=== PATIENT | female | born 1940 | race African-American/Black ===

== ENCOUNTER 2020-09-07 13:05 | Inpatient (IN) | payer BC ==
[~2020-09-07] VITALS: Ht 157.5 cm; Wt 64.0 kg
[~2020-09-07 13:05] MED LIST: DILT120C46 PO; GABA-531 PO; NORT50CA MT; PROP60CA2 PO; TIZA2CAP7 PO; VALS80TA30 MT; XAR15 MT
[2020-09-07] MEDS ORDERED: POLYETHYLENE GLYCOL 3350 (17GM) 1 DOSE PACK PO NR (15:00)
[2020-09-07] MEDS ORDERED: SODIUM POLYSTYRENE SULFONATE 15 G/60 ML BOT PO NR (15:00)
[2020-09-07 15:17] LABS: BASOPHILS % 0.4 % (0.0-2.0); EOSINOPHILS % 1.2 % (0.0-5.0); HEMATOCRIT. 32.8 % (36.0-48.0); LYMPHOCYTES % 27.7 % (20.0-50.0); MEAN CORPUSCULAR HEMOGLOBIN 29.5 pg (28.0-32.0); MEAN CORPUSCULAR VOLUME 87.5 fL (81.0-99.0); MONOCYTES % 8.2 % (2.0-8.0); NEUTROPHILS % 62.5 % (40.0-76.0); PLATELET 308 x1000/uL (130-400); RED BLOOD CELL COUNT 3.74 mill/uL (4.2-5.4); RED CELL DISTRIBUTION WIDTH 15.2 % (11.6-14.6)
[2020-09-07 15:21] LABS: CHLORIDE 102 mEq/L (98-107)
[2020-09-07 15:26] LABS: PROTHROMBIN TIME 10.9 sec (9.6-11.0)
[2020-09-07] MEDS ORDERED: SODIUM CHLORIDE 0.45% 500 ML IV ONE (15:30)
[2020-09-07 15:43] LABS: CREATINE KINASE 3418 IU/L (26-192)
[2020-09-07] MEDS ORDERED: SODIUM CHLORIDE 0.9% 500 ML IV ONE (15:45)
[2020-09-07] MEDS ORDERED: FUROSEMIDE 20MG TABLET PO SCH (21:00)
[2020-09-07] MEDS ORDERED: SODIUM CHLORIDE 0.9% 1,000 ML IV ONE (21:15)
[2020-09-07 22:05] LABS: CLARITY URINE CLEAR (CLEAR); COLOR URINE YELLOW (YELLOW); KETONES URINE NEGATIVE (NEGATIVE); LEUKOCYTE ESTERASE URINE TRACE (NEGATIVE); NITRITE URINE POSITIVE (NEGATIVE); OCCULT BLOOD URINE NEGATIVE (NEGATIVE); PH URINE 5.5 (4.5-8.0); PROTEIN URINE NEGATIVE (NEGATIVE); SPECIFIC GRAVITY URINE 1.016 (1.005-1.030); UROBILINOGEN URINE 0.2 E.U./dL (0.2-1.0)
[2020-09-07 23:34] VITALS: BP 133/49
[2020-09-08 07:15] LABS: BASOPHILS % 0.7 % (0.0-2.0); EOSINOPHILS % 2.3 % (0.0-5.0); HEMOGLOBIN. 12.6 g/dL (12.0-16.0); LYMPHOCYTES % 40.6 % (20.0-50.0); MEAN CORPUSCULAR HEMOGLOBIN 29.4 pg (28.0-32.0); MEAN CORPUSCULAR VOLUME 88.9 fL (81.0-99.0); MEAN PLATELET VOLUME 7.9 fl (7.4-10.4); MONOCYTES % 8.1 % (2.0-8.0); NEUTROPHILS % 48.3 % (40.0-76.0); PLATELET 273 x1000/uL (130-400); RED BLOOD CELL COUNT 4.27 mill/uL (4.2-5.4); RED CELL DISTRIBUTION WIDTH 15.1 % (11.6-14.6)
[2020-09-08] MEDS ORDERED: GABAPENTIN 300MG CAPSULE PO SCH (09:00)
[2020-09-08] MEDS: METOPROLOL TARTRATE 25MG TABLET PO SCH (09:24)
[2020-09-08] MEDS: SODIUM CHLORIDE 0.9% 1,000 ML IV SCH (12:55)
[2020-09-08] MEDS ORDERED: HYDROCODONE/ACETAMINOPHEN 5/325MG TABLET PO PRN (14:00)
[2020-09-08] MEDS ORDERED: BISACODYL 10MG SUPP PR PRN (14:00)
[2020-09-08] MEDS ORDERED: DIPHENHYDRAMINE 50MG/ML VIAL IV PRN (14:00)
[2020-09-08] MEDS ORDERED: ACETAMINOPHEN 325MG TABLET PO PRN (14:00)
[2020-09-08] MEDS ORDERED: ACETAMINOPHEN 650MG SUPP PR PRN (14:00)
[2020-09-08] MEDS ORDERED: IPRATROPIUM/ALBUTEROL 0.5-3(2.5)MG/3ML NEB HHN PRN (14:00)
[2020-09-08 14:38] LABS: CLARITY URINE CLEAR (CLEAR); COLOR URINE YELLOW (YELLOW); KETONES URINE NEGATIVE (NEGATIVE); LEUKOCYTE ESTERASE URINE TRACE (NEGATIVE); NITRITE URINE POSITIVE (NEGATIVE); OCCULT BLOOD URINE NEGATIVE (NEGATIVE); PROTEIN URINE NEGATIVE (NEGATIVE); SPECIFIC GRAVITY URINE 1.012 (1.005-1.030); UROBILINOGEN URINE 0.2 E.U./dL (0.2-1.0)
[2020-09-08] MEDS: CEFTRIAXONE 1,000 MG in DEXTROSE 5% WATER 50 ML IV SCH (15:56)
[2020-09-08 16:00] VITALS: BP 117/52
[2020-09-08] MEDS: RIVAROXABAN 15 MG TABLET PO SCH (17:21)
[2020-09-08] MEDS: GABAPENTIN SOLN 300MG/6ML UDC PO SCH (17:21)
[2020-09-08 20:00] VITALS: BP 109/48
[2020-09-09] VITALS: BP 122/56
[2020-09-09 04:00] VITALS: BP 126/62
[2020-09-09 05:45] LABS: CHLORIDE 108 mEq/L (98-107)
[2020-09-09 06:10] LABS: FOLIC ACID (FOLATE) SERUM 12.3 ng/mL (>5.38)
[2020-09-09 06:11] LABS: BASOPHILS % 0.5 % (0.0-2.0); EOSINOPHILS % 1.4 % (0.0-5.0); HEMATOCRIT. 33.9 % (36.0-48.0); HEMOGLOBIN. 11.4 g/dL (12.0-16.0); LYMPHOCYTES % 31.2 % (20.0-50.0); MEAN CORPUSCULAR HEMOGLOBIN 29.3 pg (28.0-32.0); MEAN CORPUSCULAR VOLUME 87.4 fL (81.0-99.0); MEAN PLATELET VOLUME 8.1 fl (7.4-10.4); MONOCYTES % 9.8 % (2.0-8.0); NEUTROPHILS % 57.1 % (40.0-76.0); PLATELET 311 x1000/uL (130-400); RED BLOOD CELL COUNT 3.88 mill/uL (4.2-5.4); RED CELL DISTRIBUTION WIDTH 15.5 % (11.6-14.6)
[2020-09-09 08:00] VITALS: BP 118/79
[2020-09-09] MEDS: GABAPENTIN SOLN 300MG/6ML UDC PO SCH ×2 (09:00→17:39)
[2020-09-09] MEDS: METOPROLOL TARTRATE 25MG TABLET PO SCH ×2 (09:00→14:31)
[2020-09-09] MEDS: SODIUM CHLORIDE 0.9% 1,000 ML IV SCH ×2 (10:55→17:50)
[2020-09-09 12:00] VITALS: BP 166/70
[2020-09-09] MEDS ORDERED: ONDANSETRON HCL 4MG/2ML INJ IV PRN (14:45)
[2020-09-09] MEDS: CEFTRIAXONE 1,000 MG in DEXTROSE 5% WATER 50 ML IV SCH (15:09)
[2020-09-09 16:00] VITALS: BP 127/61
[2020-09-09] MEDS ORDERED: VANCOMYCIN 1 G PREMIX 200 ML IV NR (16:30)
[2020-09-09 17:30] LABS: CREATINE KINASE MB FRACTION 1.9 ng/mL (0.5-3.6)
[2020-09-09] MEDS: RIVAROXABAN 15 MG TABLET PO SCH (17:39)
[2020-09-09 20:00] VITALS: BP 123/60
[2020-09-09] MEDS: MORPHINE SULFATE 2 MG/ML CPJ (NOT FOR IM USE) IV PRN (20:08)
[2020-09-10] VITALS: BP 118/57
[2020-09-10] MEDS: VANCOMYCIN 750 MG PREMIX 150 ML IV SCH ×2 (02:20→20:28)
[2020-09-10 04:00] VITALS: BP 155/70
[2020-09-10 07:47] LABS: BASOPHILS % 0.7 % (0.0-2.0); EOSINOPHILS % 1.2 % (0.0-5.0); HEMATOCRIT. 33.4 % (36.0-48.0); HEMOGLOBIN. 11.4 g/dL (12.0-16.0); LYMPHOCYTES % 27.9 % (20.0-50.0); MEAN CORPUSCULAR HEMOGLOBIN 29.6 pg (28.0-32.0); MEAN CORPUSCULAR VOLUME 86.8 fL (81.0-99.0); MONOCYTES % 7.5 % (2.0-8.0); NEUTROPHILS % 62.7 % (40.0-76.0); PLATELET 331 x1000/uL (130-400); RED BLOOD CELL COUNT 3.85 mill/uL (4.2-5.4); RED CELL DISTRIBUTION WIDTH 15.1 % (11.6-14.6)
[2020-09-10 07:56] LABS: CHLORIDE 110 mEq/L (98-107)
[2020-09-10 08:00] VITALS: BP 160/68
[2020-09-10 08:05] LABS: CREATINE KINASE 416 IU/L (26-192)
[2020-09-10] MEDS: GABAPENTIN SOLN 300MG/6ML UDC PO SCH ×2 (08:23→16:53)
[2020-09-10 12:00] VITALS: BP 144/68
[2020-09-10] MEDS ORDERED: REGADENOSON 0.4 MG/5 ML IV NR (15:15)
[2020-09-10 15:25] VITALS: BP_SYST 144; BP_SYST 151; BP_DIAS 68; BP_DIAS 69
[2020-09-10] MEDS: CEFTRIAXONE 1,000 MG in DEXTROSE 5% WATER 50 ML IV SCH (15:35)
[2020-09-10] MEDS: RIVAROXABAN 15 MG TABLET PO SCH (16:51)
[2020-09-10] MEDS: MORPHINE SULFATE 2 MG/ML CPJ (NOT FOR IM USE) IV PRN (16:52)
[2020-09-10] MEDS ORDERED: COLCHICINE 0.6MG TABLET PO SCH (17:45)
[2020-09-10 20:00] VITALS: BP 139/66
[2020-09-10] MEDS: METOPROLOL TARTRATE 25MG TABLET PO SCH (20:28)
[2020-09-10] MEDS: SULFAMETHOXAZOLE/TRIMETHOPRIM 400/80MG TAB PO SCH (20:28)
[2020-09-11] VITALS: BP 136/65
[2020-09-11] MEDS ORDERED: DEXT 5%/0.45% NACL 1000ML 1,000 ML IV SCH
[2020-09-11 04:00] VITALS: BP 151/72
[2020-09-11 07:12] LABS: BASOPHILS % 0.5 % (0.0-2.0); EOSINOPHILS % 1.6 % (0.0-5.0); HEMATOCRIT. 36.6 % (36.0-48.0); HEMOGLOBIN. 12.3 g/dL (12.0-16.0); LYMPHOCYTES % 27.2 % (20.0-50.0); MEAN CORPUSCULAR HEMOGLOBIN 29.2 pg (28.0-32.0); MEAN CORPUSCULAR VOLUME 87.2 fL (81.0-99.0); MEAN PLATELET VOLUME 7.4 fl (7.4-10.4); MONOCYTES % 7.7 % (2.0-8.0); PLATELET 313 x1000/uL (130-400); RED CELL DISTRIBUTION WIDTH 15.3 % (11.6-14.6)
[2020-09-11 07:20] LABS: CHLORIDE 111 mEq/L (98-107)
[2020-09-11 07:33] LABS: CREATINE KINASE 206 IU/L (26-192)
[2020-09-11 08:00] VITALS: BP 133/66
[2020-09-11] MEDS ORDERED: ALLOPURINOL 100 MG TABLET PO SCH (09:00)
[2020-09-11] MEDS ORDERED: DICLOFENAC SODIUM 50 MG DR TABLET PO SCH (09:00)
[2020-09-11] MEDS: GABAPENTIN SOLN 300MG/6ML UDC PO SCH (09:00)
[2020-09-11] MEDS ORDERED: REGADENOSON 0.4 MG/5 ML IV ONE (09:22)
[2020-09-11] MEDS ORDERED: MAGNESIUM OXIDE 400MG TABLET PO SCH (09:30)
[2020-09-11] MEDS: SULFAMETHOXAZOLE/TRIMETHOPRIM 400/80MG TAB PO SCH (10:37)
[2020-09-11] MEDS: METOPROLOL TARTRATE 25MG TABLET PO SCH (10:38)
[2020-09-11] MEDS: MORPHINE SULFATE 2 MG/ML CPJ (NOT FOR IM USE) IV PRN (10:39)
[2020-09-11] MEDS ORDERED: MAGNESIUM 2 G PREMIX 50 ML IV NR (11:00)
[2020-09-11 12:00] VITALS: BP 144/90
[2020-09-11 15:15] VITALS: BP 146/82
[2020-09-11 15:50] VITALS: BP 146/82
[2020-09-11] MEDS ORDERED: VANCOMYCIN 750 MG PREMIX 150 ML IV SCH (21:00)
[2020-09-13 04:07] LABS: ANTI-NUCLEAR ANTIBODIES DIRECT Negative (Negative)
[2020-09-13 07:55] VITALS: BP 137/92
== END 2020-09-11 16:22 | disposition home or self-care (01) | DRG 682 ==
LOC: ER 13:10 → 8WST 17:16 → EDBEDREQTM 19:31 → EDBEDREQ 19:31 → ENRESERV 21:28
PROVIDERS: ADMIT Internal Medicine; ATTEND Internal Medicine
PROC: 3E0U33Z Introduction of Anti-inflammatory into Joints, Percutaneous Approach (ICD-10-PCS; principal; 2020-09-11)
PROC: 3E0U3BZ Introduction of Anesthetic Agent into Joints, Percutaneous Approach (ICD-10-PCS; 2020-09-11)
DX: N17.9 Acute kidney failure, unspecified (principal); I50.33 Acute on chronic diastolic (congestive) heart failure; M72.6 Necrotizing fasciitis; I47.2 Ventricular tachycardia; L03.115 Cellulitis of right lower limb; N39.0 Urinary tract infection, site not specified; E46 Unspecified protein-calorie malnutrition; M62.82 Rhabdomyolysis; I95.9 Hypotension, unspecified; E87.5 Hyperkalemia; I70.209 Unspecified atherosclerosis of native arteries of extremities, unspecified extremity; D64.9 Anemia, unspecified; I11.0 Hypertensive heart disease with heart failure; E78.5 Hyperlipidemia, unspecified; I48.91 Unspecified atrial fibrillation; I49.5 Sick sinus syndrome; K59.00 Constipation, unspecified; M54.16 Radiculopathy, lumbar region; Z86.711 Personal history of pulmonary embolism; B96.20 Unspecified Escherichia coli [E. coli] as the cause of diseases classified elsewhere; G25.0 Essential tremor; Z96.649 Presence of unspecified artificial hip joint; I25.10 Atherosclerotic heart disease of native coronary artery without angina pectoris; M19.90 Unspecified osteoarthritis, unspecified site; E86.0 Dehydration; M48.02 Spinal stenosis, cervical region; M50.30 Other cervical disc degeneration, unspecified cervical region; N28.1 Cyst of kidney, acquired; M10.9 Gout, unspecified; Z86.718 Personal history of other venous thrombosis and embolism; Z90.49 Acquired absence of other specified parts of digestive tract; Z88.9 Allergy status to unspecified drugs, medicaments and biological substances; Z98.62 Peripheral vascular angioplasty status; Z88.1 Allergy status to other antibiotic agents; Z88.8 Allergy status to other drugs, medicaments and biological substances
CPT/HCPCS: 36415; 71045; 76700; 76770; 78227; 78452; 80048; 80053; 80076; 80202; 81003; 82140; 82248; 82270; 82550; 82553; 82607; 82746; 83735; 83880; 84132; 84443; 84484; 84550; 85025; 85651; 86038; 86141; 86160; 86850; 86900; 87186; 93005; 93017; 93970; 99285; A9500; A9537; J0696; J1200; J2270; J2785; J3370; J3475; J7030; J7060

== ENCOUNTER 2022-06-22 19:29 | Inpatient (IN) | payer BC, MEDICARE ==
[~2022-06-22] VITALS: Ht 160 cm; Wt 77.1 kg
[~2022-06-22 19:29] MED LIST changes: -DILT120C46 PO; -GABA-531 PO; -NORT50CA MT; -PROP60CA2 PO; -VALS80TA30 MT
[2022-06-23 05:39] LABS: CHLORIDE 100 mEq/L (98-107)
[2022-06-23] MEDS ORDERED: CLINDAMYCIN 600 MG in DEXTROSE 5% WATER 50 ML IV ONE (05:45)
[2022-06-23] MEDS ORDERED: KETOROLAC 30MG/ML VIAL IV ONE (05:45)
[2022-06-23 05:47] LABS: BASOPHILS % 0.2 % (0.0-2.0); EOSINOPHILS % 0.1 % (0.0-5.0); HEMATOCRIT. 35.7 % (36.0-48.0); HEMOGLOBIN. 11.5 g/dL (12.0-16.0); LYMPHOCYTES % 13.5 % (20.0-50.0); MEAN CORPUSCULAR HEMOGLOBIN 27.8 pg (28.0-32.0); MEAN CORPUSCULAR VOLUME 86.4 fL (81.0-99.0); MEAN PLATELET VOLUME 7.5 fl (7.4-10.4); MONOCYTES % 6.8 % (2.0-8.0); NEUTROPHILS % 79.4 % (40.0-76.0); PLATELET 293 x1000/uL (130-400); RED BLOOD CELL COUNT 4.13 mill/uL (4.2-5.4); RED CELL DISTRIBUTION WIDTH 16.4 % (11.6-14.6)
[2022-06-23 06:05] LABS: INR 1.3; PROTHROMBIN TIME 13.3 sec (9.6-11.0)
[2022-06-23 10:06] LABS: CLARITY URINE CLEAR (CLEAR); COLOR URINE DARK YELLOW (YELLOW); KETONES URINE TRACE (NEGATIVE); LEUKOCYTE ESTERASE URINE 2+ (NEGATIVE); NITRITE URINE POSITIVE (NEGATIVE); OCCULT BLOOD URINE 1+ (NEGATIVE); PH URINE 5.5 (4.5-8.0); PROTEIN URINE 1+ (NEGATIVE); SPECIFIC GRAVITY URINE 1.022 (1.005-1.030)
[2022-06-23 12:00] VITALS: BP 116/52
[2022-06-23 12:04] VITALS: BP 116/52
[2022-06-23] MEDS ORDERED: GABA-529 PO (12:19)
[2022-06-23] MEDS ORDERED: METO25TA6 MT (12:19)
[2022-06-23] MEDS ORDERED: LISI2.5T47 MT (12:19)
[2022-06-23] MEDS ORDERED: PIPERACILLIN/TAZOBACTAM 3.375 G in DEXTROSE 5% WATER 50 ML IV SCH (12:30)
[2022-06-23] MEDS ORDERED: VANCOMYCIN 1G PREMIX 200 ML IV SCH (12:30)
[2022-06-23] MEDS ORDERED: ONDANSETRON HCL 4MG/2ML INJ IV PRN (12:30)
[2022-06-23] MEDS ORDERED: ACETAMINOPHEN 325MG TABLET PO PRN (12:30)
[2022-06-23] MEDS ORDERED: NALOXONE HCL 0.4MG/ML VIAL IV PRN (12:45)
[2022-06-23] MEDS ORDERED: FUROSEMIDE 40MG/4ML VIAL IVP NR (14:00)
[2022-06-23] MEDS: PIPERACILLIN/TAZOBACTAM 3.375G in DEXT 5% WATER 50ML IV SCH ×2 (14:11→22:01)
[2022-06-23] MEDS: HYDROCHLOROTHIAZIDE 25MG TABLET PO SCH (14:14)
[2022-06-23] MEDS: VANCOMYCIN 750MG PREMIX 150 ML IV SCH (14:57)
[2022-06-23 16:00] VITALS: BP 95/50
[2022-06-23] MEDS ORDERED: RIVAROXABAN 20 MG TABLET PO SCH (17:00)
[2022-06-23] MEDS: RIVAROXABAN 15 MG TABLET PO SCH (17:23)
[2022-06-23 18:34] LABS: CREATINE KINASE 116 IU/L (26-192); CREATINE KINASE MB FRACTION < 1.0 ng/mL (0.5-3.6)
[2022-06-23 20:00] VITALS: BP 154/62
[2022-06-23] MEDS: LOSARTAN POTASSIUM 50 MG TABLET PO SCH (20:31)
[2022-06-23] MEDS: METOPROLOL TARTRATE 25MG TABLET PO SCH (20:31)
[2022-06-23] MEDS: HYDROCODONE/ACETAMINOPHEN 5/325MG TABLET PO PRN (20:31)
[2022-06-24] VITALS: BP 120/70
[2022-06-24 00:21] LABS: CREATINE KINASE 83 IU/L (26-192); CREATINE KINASE MB FRACTION < 1.0 ng/mL (0.5-3.6)
[2022-06-24 04:00] VITALS: BP 121/51
[2022-06-24] MEDS: PIPERACILLIN/TAZOBACTAM 3.375G in DEXT 5% WATER 50ML IV SCH ×3 (05:25→21:05)
[2022-06-24 07:24] LABS: BASOPHILS % 0.1 % (0.0-2.0); EOSINOPHILS % 0.4 % (0.0-5.0); HEMATOCRIT. 32.7 % (36.0-48.0); HEMOGLOBIN. 10.8 g/dL (12.0-16.0); LYMPHOCYTES % 11.9 % (20.0-50.0); MEAN CORPUSCULAR HEMOGLOBIN 28.1 pg (28.0-32.0); MEAN CORPUSCULAR VOLUME 84.9 fL (81.0-99.0); MEAN PLATELET VOLUME 7.8 fl (7.4-10.4); MONOCYTES % 6.3 % (2.0-8.0); NEUTROPHILS % 81.3 % (40.0-76.0); PLATELET 270 x1000/uL (130-400); RED BLOOD CELL COUNT 3.85 mill/uL (4.2-5.4); RED CELL DISTRIBUTION WIDTH 16.3 % (11.6-14.6)
[2022-06-24 07:27] LABS: CHLORIDE 97 mEq/L (98-107)
[2022-06-24 07:40] LABS: HDL CHOLESTEROL 55 mg/dL (40-59); LDL CHOLESTEROL 50 mg/dL (5-100); T4 FREE 1.51 ng/dL (0.76-1.46); TOTAL IRON BINDING CAPACITY 393 ug/dL (250-450)
[2022-06-24 08:00] VITALS: BP 155/58
[2022-06-24 08:01] LABS: VITAMIN B12 SERUM 1900 pg/mL (211-911)
[2022-06-24] MEDS: LOSARTAN POTASSIUM 50 MG TABLET PO SCH ×2 (08:17→21:01)
[2022-06-24] MEDS: HYDROCHLOROTHIAZIDE 25MG TABLET PO SCH (08:17)
[2022-06-24] MEDS: METOPROLOL TARTRATE 25MG TABLET PO SCH ×2 (08:17→21:02)
[2022-06-24] MEDS: HYDROCODONE/ACETAMINOPHEN 5/325MG TABLET PO PRN ×3 (08:18→21:01)
[2022-06-24 12:00] VITALS: BP 111/38
[2022-06-24] MEDS: VANCOMYCIN 750MG PREMIX 150 ML IV SCH (15:24)
[2022-06-24 16:00] VITALS: BP 101/40
[2022-06-24] MEDS: RIVAROXABAN 15 MG TABLET PO SCH (16:44)
[2022-06-24] MEDS ORDERED: POTASSIUM CHLORIDE 20MEQ TABLET SR PO NR (18:00)
[2022-06-24 20:00] VITALS: BP 128/60
[2022-06-25] VITALS: BP 110/42
[2022-06-25 04:00] VITALS: BP 112/53
[2022-06-25] MEDS: PIPERACILLIN/TAZOBACTAM 3.375G in DEXT 5% WATER 50ML IV SCH ×3 (05:55→21:10)
[2022-06-25 07:05] LABS: BASOPHILS % 0.2 % (0.0-2.0); EOSINOPHILS % 1.7 % (0.0-5.0); HEMOGLOBIN. 11.4 g/dL (12.0-16.0); LYMPHOCYTES % 18.4 % (20.0-50.0); MEAN CORPUSCULAR HEMOGLOBIN 28.8 pg (28.0-32.0); MEAN CORPUSCULAR VOLUME 85.6 fL (81.0-99.0); MONOCYTES % 7.8 % (2.0-8.0); NEUTROPHILS % 71.9 % (40.0-76.0); PLATELET 263 x1000/uL (130-400); RED BLOOD CELL COUNT 3.97 mill/uL (4.2-5.4); RED CELL DISTRIBUTION WIDTH 16.1 % (11.6-14.6)
[2022-06-25 07:38] LABS: CHLORIDE 100 mEq/L (98-107)
[2022-06-25 07:45] VITALS: BP 121/51
[2022-06-25] MEDS: LOSARTAN POTASSIUM 50 MG TABLET PO SCH ×2 (08:16→21:00)
[2022-06-25] MEDS: HYDROCHLOROTHIAZIDE 25MG TABLET PO SCH (08:16)
[2022-06-25] MEDS: METOPROLOL TARTRATE 25MG TABLET PO SCH ×2 (08:17→21:00)
[2022-06-25 12:00] VITALS: BP 121/46
[2022-06-25] MEDS: VANCOMYCIN 750MG PREMIX 150 ML IV SCH (13:01)
[2022-06-25] MEDS: VANCOMYCIN 500MG PREMIX 100 ML IV SCH ×2 (13:34→21:10)
[2022-06-25] MEDS ORDERED: FUROSEMIDE 40MG/4ML VIAL IVP NR (14:30)
[2022-06-25 16:10] VITALS: BP 125/53
[2022-06-25] MEDS: RIVAROXABAN 15 MG TABLET PO SCH (18:46)
[2022-06-25 20:00] VITALS: BP 106/45
[2022-06-26] VITALS: BP 123/49
[2022-06-26 04:00] VITALS: BP 132/51
[2022-06-26] MEDS: PIPERACILLIN/TAZOBACTAM 3.375G in DEXT 5% WATER 50ML IV SCH ×3 (05:15→22:09)
[2022-06-26] MEDS: HYDROCHLOROTHIAZIDE 25MG TABLET PO SCH (07:54)
[2022-06-26] MEDS: LOSARTAN POTASSIUM 50 MG TABLET PO SCH ×2 (07:54→22:05)
[2022-06-26] MEDS: VANCOMYCIN 500MG PREMIX 100 ML IV SCH ×2 (07:54→22:09)
[2022-06-26] MEDS: METOPROLOL TARTRATE 25MG TABLET PO SCH ×2 (07:54→22:08)
[2022-06-26 08:00] VITALS: BP 121/52
[2022-06-26 12:00] VITALS: BP 129/60
[2022-06-26] MEDS: HYDROCODONE/ACETAMINOPHEN 5/325MG TABLET PO PRN ×2 (12:52→22:08)
[2022-06-26 16:00] VITALS: BP 117/48
[2022-06-26] MEDS: RIVAROXABAN 15 MG TABLET PO SCH (16:12)
[2022-06-26 20:00] VITALS: BP 117/56
[2022-06-27] VITALS: BP 129/50
[2022-06-27] MEDS: PIPERACILLIN/TAZOBACTAM 3.375G in DEXT 5% WATER 50ML IV SCH ×3 (06:19→21:51)
[2022-06-27 06:52] LABS: BASOPHILS % 0.5 % (0.0-2.0); EOSINOPHILS % 1.4 % (0.0-5.0); HEMATOCRIT. 31.9 % (36.0-48.0); HEMOGLOBIN. 10.7 g/dL (12.0-16.0); LYMPHOCYTES % 14.4 % (20.0-50.0); MEAN CORPUSCULAR HEMOGLOBIN 28.3 pg (28.0-32.0); MEAN CORPUSCULAR VOLUME 84.6 fL (81.0-99.0); MEAN PLATELET VOLUME 7.6 fl (7.4-10.4); MONOCYTES % 9.7 % (2.0-8.0); PLATELET 336 x1000/uL (130-400); RED BLOOD CELL COUNT 3.77 mill/uL (4.2-5.4); RED CELL DISTRIBUTION WIDTH 15.9 % (11.6-14.6)
[2022-06-27 08:00] VITALS: BP 116/56
[2022-06-27 08:04] LABS: CHLORIDE 98 mEq/L (98-107)
[2022-06-27] MEDS: VANCOMYCIN 500MG PREMIX 100 ML IV SCH ×2 (09:46→21:50)
[2022-06-27] MEDS: METOPROLOL TARTRATE 25MG TABLET PO SCH ×2 (09:46→21:50)
[2022-06-27] MEDS: LOSARTAN POTASSIUM 50 MG TABLET PO SCH ×2 (09:46→21:50)
[2022-06-27] MEDS: HYDROCHLOROTHIAZIDE 25MG TABLET PO SCH (09:47)
[2022-06-27 12:00] VITALS: BP 150/56
[2022-06-27] MEDS ORDERED: POTASSIUM CHLORIDE 20MEQ TABLET SR PO NR (16:00)
[2022-06-27 16:01] VITALS: BP 141/52
[2022-06-27] MEDS: RIVAROXABAN 15 MG TABLET PO SCH (16:36)
[2022-06-27] MEDS: HYDROCODONE/ACETAMINOPHEN 5/325MG TABLET PO PRN (17:41)
[2022-06-27 20:00] VITALS: BP 152/52
[2022-06-28] VITALS: BP 112/52
[2022-06-28 04:00] VITALS: BP 115/50
[2022-06-28] MEDS: PIPERACILLIN/TAZOBACTAM 3.375G in DEXT 5% WATER 50ML IV SCH ×3 (05:29→22:46)
[2022-06-28] MEDS: HYDROCODONE/ACETAMINOPHEN 5/325MG TABLET PO PRN ×2 (05:44→23:03)
[2022-06-28] MEDS: HYDROCHLOROTHIAZIDE 25MG TABLET PO SCH (08:51)
[2022-06-28] MEDS: LOSARTAN POTASSIUM 50 MG TABLET PO SCH ×2 (08:51→21:45)
[2022-06-28] MEDS: METOPROLOL TARTRATE 25MG TABLET PO SCH ×2 (08:52→21:45)
[2022-06-28] MEDS: VANCOMYCIN 500MG PREMIX 100 ML IV SCH ×2 (08:59→21:45)
[2022-06-28] MEDS ORDERED: NALOXONE HCL 0.4MG/ML VIAL IV PRN (15:00)
[2022-06-28] MEDS: RIVAROXABAN 15 MG TABLET PO SCH (17:00)
[2022-06-28 20:00] VITALS: BP 113/72
[2022-06-29] VITALS: BP 123/69
[2022-06-29 03:58] VITALS: BP 112/56
[2022-06-29 08:00] VITALS: BP 148/61
[2022-06-29] MEDS: METOPROLOL TARTRATE 25MG TABLET PO SCH ×2 (09:30→22:12)
[2022-06-29] MEDS: LOSARTAN POTASSIUM 50 MG TABLET PO SCH ×2 (09:31→22:11)
[2022-06-29] MEDS: HYDROCHLOROTHIAZIDE 25MG TABLET PO SCH (09:31)
[2022-06-29 12:00] VITALS: BP 125/56
[2022-06-29] MEDS: HYDROCODONE/ACETAMINOPHEN 5/325MG TABLET PO PRN (14:40)
[2022-06-29 16:00] VITALS: BP 127/71
[2022-06-29] MEDS: RIVAROXABAN 15 MG TABLET PO SCH (17:00)
[2022-06-29 20:00] VITALS: BP 117/43
[2022-06-30] VITALS: BP 152/56
[2022-06-30 04:00] VITALS: BP 122/55
[2022-06-30 08:00] VITALS: BP 149/61
[2022-06-30] MEDS: HYDROCHLOROTHIAZIDE 25MG TABLET PO SCH (08:59)
[2022-06-30] MEDS: LOSARTAN POTASSIUM 50 MG TABLET PO SCH ×2 (08:59→21:55)
[2022-06-30] MEDS: METOPROLOL TARTRATE 25MG TABLET PO SCH ×2 (08:59→21:56)
[2022-06-30 12:00] VITALS: BP 127/54
[2022-06-30] MEDS ORDERED: SULF1TAB48 MT (13:30)
[2022-06-30] MEDS ORDERED: AMOX1TAB16 MT (13:30)
[2022-06-30 16:00] VITALS: BP 122/52
[2022-06-30] MEDS: RIVAROXABAN 15 MG TABLET PO SCH (17:47)
[2022-06-30 20:00] VITALS: BP 148/78
[2022-07-01] VITALS: BP 124/61
[2022-07-01 04:00] VITALS: BP 140/68
[2022-07-01 06:19] LABS: BASOPHILS % 0.7 % (0.0-2.0); EOSINOPHILS % 1.5 % (0.0-5.0); HEMATOCRIT. 37.8 % (36.0-48.0); HEMOGLOBIN. 11.8 g/dL (12.0-16.0); LYMPHOCYTES % 28.1 % (20.0-50.0); MEAN CORPUSCULAR VOLUME 89.1 fL (81.0-99.0); MEAN PLATELET VOLUME 7.7 fl (7.4-10.4); MONOCYTES % 8.5 % (2.0-8.0); NEUTROPHILS % 61.2 % (40.0-76.0); PLATELET 363 x1000/uL (130-400); RED BLOOD CELL COUNT 4.24 mill/uL (4.2-5.4); RED CELL DISTRIBUTION WIDTH 16.4 % (11.6-14.6)
[2022-07-01 06:35] LABS: CHLORIDE 106 mEq/L (98-107)
[2022-07-01 08:00] VITALS: BP 153/60
[2022-07-01] MEDS: LOSARTAN POTASSIUM 50 MG TABLET PO SCH ×2 (08:12→21:30)
[2022-07-01] MEDS: HYDROCHLOROTHIAZIDE 25MG TABLET PO SCH (08:13)
[2022-07-01] MEDS: METOPROLOL TARTRATE 25MG TABLET PO SCH ×2 (08:13→21:31)
[2022-07-01 12:00] VITALS: BP 119/63
[2022-07-01] MEDS: HYDROCODONE/ACETAMINOPHEN 5/325MG TABLET PO PRN (12:52)
[2022-07-01] MEDS: PIPERACILLIN/TAZOBACTAM 3.375 G in DEXTROSE 5% WATER 50 ML IV SCH ×3 (13:00→22:00)
[2022-07-01 16:00] VITALS: BP 117/48
[2022-07-01] MEDS: RIVAROXABAN 15 MG TABLET PO SCH (16:02)
[2022-07-01 20:00] VITALS: BP 104/48
[2022-07-02 04:00] VITALS: BP 136/63
[2022-07-02] MEDS: PIPERACILLIN/TAZOBACTAM 3.375 G in DEXTROSE 5% WATER 50 ML IV SCH ×2 (06:00→14:00)
[2022-07-02 08:00] VITALS: BP_SYST 126; BP_DIAS 126; BP_DIAS 50
[2022-07-02] MEDS: LOSARTAN POTASSIUM 50 MG TABLET PO SCH (08:11)
[2022-07-02] MEDS: METOPROLOL TARTRATE 25MG TABLET PO SCH (08:11)
[2022-07-02] MEDS: HYDROCHLOROTHIAZIDE 25MG TABLET PO SCH (08:11)
[2022-07-02] MEDS: HYDROCODONE/ACETAMINOPHEN 5/325MG TABLET PO PRN ×2 (08:12→12:26)
[2022-07-02 12:00] VITALS: BP 136/67
[2022-07-02 13:46] VITALS: BP 136/67
[2022-07-02 16:00] VITALS: BP 140/72
[2022-07-02] MEDS: RIVAROXABAN 15 MG TABLET PO SCH (16:13)
== END 2022-07-02 17:15 | disposition home health service (06) | DRG 603 ==
LOC: ER 19:38 → 8WST 06-23 07:04 → ENRESERV 06-23 08:24
PROVIDERS: ADMIT Internal Medicine; ATTEND Internal Medicine
DX: L03.116 Cellulitis of left lower limb (principal); N39.0 Urinary tract infection, site not specified; L03.115 Cellulitis of right lower limb; S81.802A Unspecified open wound, left lower leg, initial encounter; S81.801A Unspecified open wound, right lower leg, initial encounter; I49.5 Sick sinus syndrome; D64.9 Anemia, unspecified; I48.0 Paroxysmal atrial fibrillation; E78.5 Hyperlipidemia, unspecified; I11.0 Hypertensive heart disease with heart failure; I50.9 Heart failure, unspecified; E87.6 Hypokalemia; B96.20 Unspecified Escherichia coli [E. coli] as the cause of diseases classified elsewhere; G62.9 Polyneuropathy, unspecified; M19.90 Unspecified osteoarthritis, unspecified site; I70.209 Unspecified atherosclerosis of native arteries of extremities, unspecified extremity; Z88.1 Allergy status to other antibiotic agents; Z96.649 Presence of unspecified artificial hip joint; Z86.718 Personal history of other venous thrombosis and embolism; Z86.711 Personal history of pulmonary embolism; Z79.899 Other long term (current) drug therapy; Z79.01 Long term (current) use of anticoagulants; X58.XXXA Exposure to other specified factors, initial encounter; Y93.89 Activity, other specified; Y92.89 Other specified places as the place of occurrence of the external cause; Y99.8 Other external cause status
CPT/HCPCS: 36415; 71045; 80048; 80053; 80061; 80202; 81003; 82550; 82553; 82607; 83540; 83550; 83605; 83735; 84145; 84439; 84443; 84484; 85025; 85044; 87077; 87186; 93005; 93923; 93970; 97162; 97166; 99285; C1893; J1885; J1940; J2543; J3370; J3490; J7060

== ENCOUNTER 2023-09-05 18:42 | Emergency (ER) | payer BC ==
[~2023-09-05] VITALS: Ht 157.5 cm; Wt 64.5 kg
[~2023-09-05 18:42] MED LIST changes: +AMOX1TAB16 MT; +GABA-529 PO; +LISI2.5T47 MT; +METO25TA6 MT; +SULF1TAB48 MT
[2023-09-05 19:01] VITALS: O2SAT 96
[2023-09-05] MEDS ORDERED: xarelto (19:03)
[2023-09-05] MEDS: CEFTAZIDIME PENTAHYDRATE 1 G in DEXTROSE 5% WATER 50 ML IV SCH (19:15)
[2023-09-05] MEDS ORDERED: VANCOMYCIN 1G PREMIX 200 ML IV SCH (19:15)
[2023-09-05] MEDS ORDERED: ONDANSETRON HCL 4MG/2ML INJ IV ONE ×2 (19:30→19:45)
[2023-09-05] MEDS ORDERED: TETANUS, DIPHTHERIA, PERTUSSIS VAC/PF 0.5ML (>10YR OLD) IM ONE (19:30)
[2023-09-05] MEDS ORDERED: ACETAMINOPHEN 325MG TABLET PO ONE (19:45)
[2023-09-05 20:03] LABS: BASOPHILS % 0.6 % (0.0-2.0); EOSINOPHILS % 2.6 % (0.0-5.0); HEMATOCRIT. 33.6 % (36.0-48.0); HEMOGLOBIN. 10.7 g/dL (12.0-16.0); LYMPHOCYTES % 31.5 % (20.0-50.0); MEAN CORPUSCULAR HEMOGLOBIN 27.5 pg (28.0-32.0); MEAN CORPUSCULAR HGB CONC 31.9 g/dL (31.0-37.0); MEAN CORPUSCULAR VOLUME 86.3 fL (81.0-99.0); MEAN PLATELET VOLUME 7.4 fl (7.4-10.4); MONOCYTES % 9.3 % (2.0-8.0); PLATELET 277 x1000/uL (130-400); RED CELL DISTRIBUTION WIDTH 16.6 % (11.6-14.6); WHITE BLOOD COUNT 8.7 x1000/uL (4.5-11.0)
[2023-09-05 20:09] LABS: CHLORIDE 109 mEq/L (98-107); INDEX HEMOLYSI 1 (1-3); INDEX ICTERIC 1 (1-4); INDEX LIPEMIC 1 (1-3); POTASSIUM 4.2 mEq/L (3.5-5.1); SODIUM 140 mEq/L (136-145)
[2023-09-05 20:13] LABS: INR 1.1; PARTIAL THROMBOPLASTIN TIME 35.1 sec (23.4-31.0)
[2023-09-05 20:18] LABS: ALANINE AMINOTRANSFERASE 13 IU/L (13-61); ALBUMIN 3.3 g/dL (3.4-5.0); ASPARTATE AMINOTRANSFERASE 13 IU/L (15-37); BILIRUBIN TOTAL 0.5 mg/dL (0.1-1.0); CALCIUM 9.2 mg/dL (8.5-10.1); CARBON DIOXIDE 25 mEq/L (21-32); CREATININE 1.1 mg/dL (0.6-1.3); GLUCOSE 94 mg/dL (70-105); PROTEIN TOTAL 7.2 g/dL (6.0-8.3); UREA NITROGEN BLOOD 30 mg/dL (7-21)
[2023-09-05] MEDS ORDERED: VANCOMYCIN 1G PREMIX 200 ML IV NR (23:45)
[2023-09-05] MEDS ORDERED: ACETAMINOPHEN 325MG TABLET PO NR (23:45)
[2023-09-06] MEDS ORDERED: TETANUS, DIPHTHERIA, PERTUSSIS VAC/PF 0.5ML (>10YR OLD) IM ONE
[2023-09-06] MEDS: CEFTAZIDIME PENTAHYDRATE 1 G in DEXTROSE 5% WATER 50 ML IV SCH ×2 (03:15→04:15)
[2023-09-06 09:11] VITALS: BP 167/77; PULSE 78; RESP 17; TEMP 98
== END 2023-09-06 10:03 | disposition short-term general hospital (02) ==
LOC: ER 18:42
DX: S05.31XA Ocular laceration without prolapse or loss of intraocular tissue, right eye, initial encounter (principal); H54.61 Unqualified visual loss, right eye, normal vision left eye; I10 Essential (primary) hypertension; I48.91 Unspecified atrial fibrillation; Z98.890 Other specified postprocedural states; Z88.8 Allergy status to other drugs, medicaments and biological substances; V98.8XXA Other specified transport accidents, initial encounter; Y93.89 Activity, other specified; Y92.89 Other specified places as the place of occurrence of the external cause; Y99.8 Other external cause status
CPT/HCPCS: 99291; 70450; 96365; 96366; 80053; 83690; 85025; 85610; 85730; 36415; 72125; 71250; 74176; 90471; 70480; 90715; J0713; J3370; J7060

== ENCOUNTER 2024-06-05 12:38 | Emergency (ER) | payer BC ==
[~2024-06-05] VITALS: Ht 167.6 cm; Wt 80.0 kg
[~2024-06-05 12:38] MED LIST changes: +xarelto
[2024-06-05 12:47] VITALS: O2SAT 100
[2024-06-05] MEDS: CEFTRIAXONE SODIUM 1G VIAL IM ONE (14:47)
[2024-06-05] MEDS ORDERED: CEPH500C2 MT (14:48)
[2024-06-05] MEDS ORDERED: SULF1TAB48 MT (14:48)
[2024-06-05 15:51] VITALS: BP 138/68; PULSE 78; RESP 16; TEMP 98
== END 2024-06-05 15:54 | disposition home or self-care (01) ==
LOC: ER 12:38
DX: L03.115 Cellulitis of right lower limb (principal); I10 Essential (primary) hypertension; I48.91 Unspecified atrial fibrillation; Z88.1 Allergy status to other antibiotic agents; Z91.041 Radiographic dye allergy status; Z79.899 Other long term (current) drug therapy; Z98.890 Other specified postprocedural states
CPT/HCPCS: 99285; 73700; 96372; J0696